=== PATIENT | male | born 1940 | race African-American/Black ===

== ENCOUNTER 2016-12-28 04:36 | Emergency (ER) | payer MEDICARE ==
[~2016-12-28] VITALS: Ht 177.8 cm; Wt 65.0 kg
[2016-12-28 06:58] LABS: ALANINE AMINOTRANSFERASE 11 IU/L (13-61); ALBUMIN 2.5 g/dL (3.4-5.0); ANION GAP 12; BASOPHILS % 0.9 % (0.0-2.0); CALCIUM 8.8 mg/dL (8.5-10.1); CARBON DIOXIDE 35 mEq/L (21-32); CHLORIDE 95 mEq/L (98-107); EOSINOPHILS % 0.2 % (0.0-5.0); HEMATOCRIT. 33.5 % (42.0-52.0); HEMOGLOBIN. 10.3 g/dL (14.0-18.0); INDEX HEMOLYSI 1 (1-3); INDEX ICTERIC 1 (1-4); INDEX LIPEMIC 1 (1-3); LIPASE 171 IU/L (73-393); LYMPHOCYTES % 9.4 % (20.0-50.0); MEAN CORPUSCULAR HEMOGLOBIN 23.7 pg (28.0-32.0); MEAN CORPUSCULAR HGB CONC 30.8 g/dL (31.0-37.0); MONOCYTES % 7.1 % (2.0-8.0); NEUTROPHILS % 82.4 % (40.0-76.0); RED BLOOD CELL COUNT 4.34 mill/uL (4.7-6.1); RED CELL DISTRIBUTION WIDTH 21.4 % (11.6-14.6); UREA NITROGEN BLOOD 11 mg/dL (7-21); WHITE BLOOD COUNT 11.7 x1000/uL (4.5-11.0); eGFR 14 mL/min (>60)
[2016-12-28 07:04] LABS: DIFFERENTIAL COMMENT 1
[2016-12-28 07:05] LABS: ADD RBC MORPHOLOGY YES
[2016-12-28 07:29] LABS: ANISOCYTOSIS 2+
[2016-12-28 07:30] LABS: PLATELET ESTIMATE MARKEDLY DECREASED
[2016-12-28 07:32] LABS: PLATELET 43 x1000/uL (130-400)
[2016-12-28 07:55] VITALS: BP 107/85
== END 2016-12-28 07:59 | disposition home or self-care (01) ==
LOC: ER 04:40
DX: I12.0 Hypertensive chronic kidney disease with stage 5 chronic kidney disease or end stage renal disease (principal); D69.6 Thrombocytopenia, unspecified; D50.9 Iron deficiency anemia, unspecified; I25.10 Atherosclerotic heart disease of native coronary artery without angina pectoris; N18.6 End stage renal disease; Z99.2 Dependence on renal dialysis; Z95.1 Presence of aortocoronary bypass graft; Z90.49 Acquired absence of other specified parts of digestive tract; Z86.73 Personal history of transient ischemic attack (TIA), and cerebral infarction without residual deficits
CPT/HCPCS: 36415; 80053; 83690; 85025; 99284